=== PATIENT | male | born 1945 | race Caucasian/White ===

== ENCOUNTER → 2017-05-05 | Outpatient (CLI) | payer BC ==
[~2017-05-05] MED LIST: ASCO10003 PO; ASPI325T45 PO; ATOR-22 PO; CALCTAB5 PO; CIPR-255 PO; CLR10 PO; COQ-10 PO; FLAX1CAP11 PO; HYDC25 PO; LPR25 PO; MAGN400T6 PO; MULT-506 PO; POTA10TA PO; TAMS0.4C38 PO
[2017-05-05 10:17] LABS: CHOLESTEROL/HDL RATIO 2.4
== END | disposition home or self-care (01) ==
LOC: C.LAB1850 08:39
PROVIDERS: ATTEND Internal Medicine Cardiovascular Disease
DX: E78.00 Pure hypercholesterolemia, unspecified (principal); I10 Essential (primary) hypertension

== ENCOUNTER → 2017-12-02 | Outpatient (CLI) | payer BC ==
[2017-12-02 17:38] LABS: BASO % 0.4 %; BASO ABS # 0.03 K/uL (0-0.2); EOS % 5.7 %; EOS ABS # 0.43 K/uL (0-0.5); HEMATOCRIT 42.6 % (42-52); HEMOGLOBIN 15.2 g/dL (14.0-18.0); IG# 0.01 K/uL (0.00-0.02); LYMPH % 32.4 %; LYMPH ABS # 2.45 K/uL (1.2-3.4); MEAN CELL VOLUME 88.2 fL (80-100); MEAN CORPUSCULAR HEMOGLOBIN 31.5 pg (25-34); MEAN CORPUSCULAR HGB CONC 35.7 g/dl (32-36); MEAN PLATELET VOLUME 11.2 fL (7.4-10.4); MONO % 11.1 %; MONO ABS # 0.84 K/uL (0.11-0.59); NEUT % 50.3 %; NEUT ABS # 3.81 K/uL (1.4-6.5); PLATELET COUNT 231 K/uL (130-400); RED CELL DISTRIBUTION WIDTH CV 13.6 % (11.5-14.5); RED CELL DISTRIBUTION WIDTH SD 44.3 fL (36.4-46.3); WHITE BLOOD COUNT 7.57 K/uL (4.8-10.8)
[2017-12-02 18:26] LABS: ALBUMIN 3.8 gm/dl (3.4-5.0); ALT/SGPT 36 U/L (12-78); BLOOD UREA NITROGEN 24 mg/dl (7-18); CALCIUM 9.3 mg/dl (8.5-10.1); CARBON DIOXIDE 31 mmol/L (21-32); CHOLESTEROL 121 mg/dl (0-200); GLUCOSE 91 mg/dl (70-99); POTASSIUM 3.7 mmol/L (3.5-5.1); SODIUM 137 mmol/L (136-145)
[2017-12-02 18:36] LABS: ALKALINE PHOSPHATASE 71 U/L (45-117); AST/SGOT 23 U/L (15-37); LDL CHOLESTEROL CALCULATED 43 mg/dl; TOTAL PROTEIN 7.1 gm/dl (6.4-8.2)
[2017-12-03 07:06] LABS: HEMOGLOBIN A1C 5.6 % (4.5-5.6)
== END | disposition home or self-care (01) ==
LOC: C.LABBFT 13:49
PROVIDERS: ATTEND Internal Medicine
DX: Z12.5 Encounter for screening for malignant neoplasm of prostate (principal); E78.00 Pure hypercholesterolemia, unspecified; R73.01 Impaired fasting glucose; I10 Essential (primary) hypertension

== ENCOUNTER → 2018-05-02 | Outpatient (CLI) | payer BC ==
[~2018-05-02] MED LIST changes: +ASPECOTC PO; -ASPI325T45 PO
== END | disposition home or self-care (01) ==
LOC: C.LAB 10:32
PROVIDERS: ATTEND Internal Medicine Cardiovascular Disease
DX: Z00.00 Encounter for general adult medical examination without abnormal findings (principal); E78.00 Pure hypercholesterolemia, unspecified

== ENCOUNTER 2022-01-26 14:27 | Observation (INO) ==
[2022-01-26 15:12] LABS: Basophils # (auto) 0.03 K/uL (0-0.2); Basophils % (auto) 0.3 %; Eosinophils # (auto) 0.27 K/uL (0-0.5); Eosinophils % (auto) 2.3 %; Hematocrit (blood only) 44.7 % (42-52); Hemoglobin 15.9 g/dL (14.0-18.0); Immature Granulocytes # (auto) 0.02 K/uL (0.00-0.02); Immature Granulocytes % (auto) 0.2 %; Lymphocytes # (auto) 2.15 K/uL (1.2-3.4); Lymphocytes % (auto) 18.5 %; Mean Corpuscular Hemoglobin 31.7 pg (25-34); Mean Corpuscular Hgb Conc 35.6 g/dL (32-36); Mean Platelet Volume 11.4 fL (7.4-10.4); Monocytes # (auto) 1.04 K/uL (0.11-0.59); Neutrophils % (auto) 69.7 %; Platelet Count 314 K/uL (130-400); RDW Coefficient of Variation 13.7 % (11.5-14.5); RDW Standard Deviation 44.7 fL (36.4-46.3); Red Blood Count 5.02 M/uL (4.7-6.1); White Blood Count 11.61 K/uL (4.8-10.8)
[2022-01-26 15:15] LABS: Partial Thromboplastin Time 28.1 Seconds (21.0-31.0); Prothrombin Time 10.7 Seconds (9.0-12.0)
[2022-01-26 15:41] LABS: Albumin Globulin Ratio 1.7 (0.9-2); Albumin Level 4.3 gm/dl (3.4-5.0); BUN Creatinine Ratio 13.6 (10-20); Bilirubin,Total 0.5 mg/dl (0.2-1.0); Creatinine Clr Calc Pharmacy 46.3 ml/min; Est GFR (African American) 56.6 ml/min; Est GFR (Non-African American) 48.8 ml/min; Globulin 2.6 gm/dl (2.5-4.0); Magnesium 1.8 mg/dl (1.7-2.4); Potassium 4.2 mmol/L (3.5-5.1); Total Protein 6.9 gm/dl (6.0-8.3)
--- NOTE | 2022-01-26 16:39 | Emergency Department Note ---
Impression & Plan Chest pain ADMIT ED Provider Note HPI: The patient is a 76-year-old male with history of TIA, hypertension, hyperlipidemia, presents emergency department today with complaint of shortness of breath. Patient states that he went to play golf this morning as he usually does, states that he became short of breath as he was walking through the golf course. Patient states that by the time he finished the nine-hole he was very short of breath and also had some chest "pressure". He denies any pain. Patient states this sensation of chest pressure began about 4 hours prior to my initial evaluation here in the ED. Patient states that he also has had some sensation of mild dizziness although he has had this multiple times previously associated with vertigo. On arrival here to the ED the patient states he still does have some mild pressure, he is hemodynamically stable on my initial assessment, he is resting comfortably in bed and otherwise in no acute distress. ROS: -Cardio: Nonspecific chest pressure -Pulmonary: Dyspnea *10 point review systems was conducted and is otherwise negative unless stated above *Outpatient medications and allergy history reviewed PE: General: Alert, NAD HEENT: Normocephalic, atraumatic Eyes: Extraocular eye movement is intact, no scleral erythema Pulmonary: Clear to auscultation bilaterally, no wheezing Cardio: Regular rate and rhythm GI: Abdomen is soft, nontender : No suprapubic tenderness MSK: No evidence of trauma or malformation of the extremities, no edema Skin: No evidence of rash Neuro: Alert, no focal deficits Psychiatric: Cooperative laboratory monitor: - An order was placed for continuous cardiac monitoring - Patient was noted to be in sinus rhythm with rate of 85 EKG: Rate: 104 Rhythm: Accelerated junctional rhythm with retrograde conduction Intervals: QRS 60 ms, QTC [address] changes: No ST elevation Time: 1448 EKG #2: Rate: 73 Rhythm: Sinus rhythm with first-degree AV block Intervals: HI interval prolonged at 400 ms, QRS within normal limits, QTC within normal limits ST changes: No ST elevation Time: 1643 Medical Decision Making: Patient presented to the emergency department with some symptoms of exertional dyspnea today, also complained of nonspecific chest pressure, arrival here to the ED he appears well, initial EKG shows an abnormal rhythm with possible retrograde conduction, inverted P waves noted in lead V1 otherwise no identifiable P waves are noted. Repeat EKG shows sinus rhythm with a severe first-degree AV block measuring a HI interval of 400 ms. Shortly after arrival here to the ED the patient was placed on media monitor, IV was established, lab work obtained. Lab work shows an initial negative high-sensitivity troponin of 15, EKG shows accelerated junctional rhythm without ischemic changes. Repeat EKG shows sinus rhythm with a first-degree AV block without ischemic changes. Chest x-ray does not show any evidence of any acute pathology. Lab work does not show any evidence of any critical electrolyte abnormalities. Delta high-sensitivity troponin returned elevated greater than 25, given the patient's ongoing chest pressure with EKG changes decision was made for admission to which the patient and his at the bedside are in agreement. Case was discussed with the patient's extension course coordinator, Dr. Issa, who is aware of the patient's EKG findings, suggest that this likely is an AV nicole reentry finding on the initial EKG, we will plan for cardiology consultation during admission and patient was admitted to the hospitalist service of [facility] following my discussion with Dr. Pascual. Patient is in agreement to the above plan he was admitted in stable condition for further care. Diagnosis: 1. Nonspecific chest pressure 2. EKG abnormality 3. Elevated delta troponin (high-sensitivity) Disposition: Admission Parviz Mckeon DO Emergency Medicine Past Med/Surg History Medical History (Updated 01/27/22 @ 00:13 by Parviz Mckeon DO) BPH (benign prostatic hyperplasia) Diverticulosis History of lacunar cerebrovascular accident Hypercholesterolemia Hypertension Right-sided tinnitus Sensorineural hearing loss (SNHL) of right ear with restricted hearing of left ear Transient ischemic attack (TIA) 11/2011--unsure of reason--no deficits, no neurologist--on aspirin 325mg daily Tubular adenoma of colon Surgical History History of colonoscopy Status post trigger finger release x3 Family History Father Hearing loss Mother Hearing loss Hypertension Brother Leukemia Other No family history of adverse response to anesthesia No family history of bleeding disorder Denies family history of Ovarian cancer Prostate cancer Diabetes Myocardial infarction Breast cancer Colorectal cancer Social History Smoking Status: Former smoker Tobacco Type: Cigarettes Age Started Using Tobacco: 19; Age Quit Using Tobacco: 36; packs per day: 1; Years Smoked: 17; Second Hand Exposure: No; Do You Dip or Chew Tobacco: No; Tobacco Cessation Education Requested by Patient: No Hx Alcohol Use: No Hx Substance Use: No Preferred Language: Pashto Communication Ability: Effective Counseling Department Chair Required: No Beliefs That Will Affect Care: None marital status: Current Living Situation: Spouse current occupational status: retired Other Information That Helps Us Care for You: No Feels Safe at Home: Yes Safety Concerns: Feels Safe At This Time Dental Care, Regularly: Yes Physical Activity Frequency: Daily Seatbelt Use: always Sunscreen Use: Yes Assistive Devices: Glasses Allergies Allergies Allergy/AdvReac Type Severity Reaction Status Date / Time NSAIDS (Non-Steroidal Allergy Unknown STROKE Verified 01/05/22 14:01 Anti-Inflamma AFTER MED?UNSURE IF CAUSED codeine AdvReac Mild ABDOMINAL Verified 01/05/22 14:01 PAIN Home Meds Home Medications Medication Instructions Recorded Confirmed ascorbic acid (vitamin C) 1,000 mg 1 gm PO QAM tab 06/06/19 01/26/22 tablet aspirin 325 mg tablet 325 mg PO QAM tab 06/06/19 01/26/22 coenzyme Q10 100 mg capsule 100 mg PO QAM cap 06/06/19 01/26/22 multivitamin (Daily Multi-Vitamin) 1 tab PO QAM 06/06/19 01/26/22 calcium carbonate 600 mg-vitamin 1 cap PO QAM cap 06/04/21 01/26/22 D3 12.5 mcg (500 unit) capsule (Calcium 600 with Vitamin D3) hydrochlorothiazide 25 mg tablet 25 mg PO QAM 06/04/21 01/26/22 inulin [Fiber Gummies] 1 tab PO DAILY 06/09/21 01/26/22 omega-3 fatty acids-fish oil 360 1 cap PO DAILY 06/09/21 01/26/22 mg-1,200 mg capsule (Fish Oil) super beta prostate 1 tab PO QPM 06/09/21 01/26/22 loratadine 10 mg tablet (Claritin) 10 mg PO DAILY 01/26/22 01/26/22 magnesium 250 mg tablet 250 mg PO DAILY 01/26/22 01/26/22 peg 400-propylene glycol (PF) 0.4 1 drp OPHTHALMIC (EYE) BID 01/26/22 01/26/22 %-0.3 % eye drops in a dropperette (Systane (PF)) Previous Rx's Medication Instructions Recorded metoprolol tartrate 25 mg tablet 25 mg PO BID #180 tab 02/11/21 atorvastatin 20 mg tablet 20 mg PO HS #90 tab 03/10/21 potassium chloride 10 mEq 10 meq PO QAM #90 tab 12/10/21 tablet,extended release(part/cryst) tamsulosin 0.4 mg capsule 0.4 mg PO QPM #90 cap 12/10/21 Results & Data (ED) Vital Signs Vital Signs - 24 hr 01/26/22 14:27 01/26/22 14:36 01/26/22 16:48 Temperature 36.7 C Temperature Source Oral Pulse Rate 111 H 72 Respiratory Rate 18 21 Blood Pressure 117/79 Blood Pressure Mean 91 Pulse Oximetry 96 93 98 Oxygen Delivery Method Room Air Room Air Room Air Sepsis Recent Fever Within 48 Hours No Sepsis New/Unexplained Change in Mental Status N/A Sepsis Action Taken by Nursing No Action Required 01/26/22 17:00 01/26/22 17:15 01/26/22 17:30 Temperature Temperature Source Pulse Rate 70 71 67 Respiratory Rate 20 20 21 Blood Pressure 128/91 130/92 Blood Pressure Mean 103 104 Pulse Oximetry 97 100 99 Oxygen Delivery Method Room Air Room Air Room Air Sepsis Recent Fever Within 48 Hours Sepsis New/Unexplained Change in Mental Status Sepsis Action Taken by Nursing 01/26/22 17:45 01/26/22 18:00 01/26/22 18:15 Temperature Temperature Source Pulse Rate 65 70 70 Respiratory Rate 22 14 28 H Blood Pressure 132/94 Blood Pressure Mean 106 Pulse Oximetry 98 98 98 Oxygen Delivery Method Room Air Room Air Room Air Sepsis Recent Fever Within 48 Hours Sepsis New/Unexplained Change in Mental Status Sepsis Action Taken by Nursing 01/26/22 18:30 01/26/22 18:45 01/26/22 19:00 Temperature Temperature Source Pulse Rate 68 70 70 Respiratory Rate 14 19 20 Blood Pressure 102/60 118/72 Blood Pressure Mean 74 87 Pulse Oximetry 99 99 97 Oxygen Delivery Method Room Air Room Air Sepsis Recent Fever Within 48 Hours Sepsis New/Unexplained Change in Mental Status Sepsis Action Taken by Nursing 01/26/22 19:10 Temperature Temperature Source Pulse Rate 68 Respiratory Rate 21 Blood Pressure Blood Pressure Mean Pulse Oximetry 97 Oxygen Delivery Method Room Air Sepsis Recent Fever Within 48 Hours Sepsis New/Unexplained Change in Mental Status Sepsis Action Taken by Nursing Laboratory Data Result diagrams: 01/26/22 14:52 01/26/22 14:52 Lab Results 01/26/22 01/26/22 01/26/22 Range/Units 14:52 14:52 14:52 WBC 11.61 H (4.8-10.8) K/uL RBC 5.02 (4.7-6.1) M/uL Hgb 15.9 (14.0-18.0) g/dL Hct 44.7 (42-52) % MCV 89.0 (80-100) fL MCH 31.7 (25-34) pg MCHC 35.6 (32-36) g/dL RDW Std Deviation 44.7 (36.4-46.3) fL RDW Coeff of Cherie 13.7 (11.5-14.5) % Plt Count 314 (130-400) K/uL MPV 11.4 H (7.4-10.4) fL Immature Gran % (Auto) 0.2 % Neut % (Auto) 69.7 % Lymph % (Auto) 18.5 % [place] % (Auto) 9.0 % Eos % (Auto) 2.3 % Baso % (Auto) 0.3 % Neut # (Auto) 8.10 H (1.4-6.5) K/uL Lymph # (Auto) 2.15 (1.2-3.4) K/uL [place] # (Auto) 1.04 H (0.11-0.59) K/uL Eos # (Auto) 0.27 (0-0.5) K/uL Baso # (Auto) 0.03 (0-0.2) K/uL Immature Gran # (Auto) 0.02 (0.00-0.02) K/uL PT 10.7 (9.0-12.0) Seconds INR 1.0 (0.9-1.1) APTT 28.1 (21.0-31.0) Seconds PTT Ratio 1.0 VBG pH (7.36-7.41) VBG pCO2 (38-50) mmHg VBG pO2 mmHg VBG HCO3 mmol/L VBG O2 Saturation % VBG Base Excess mEq/L Barometric Pressure mm/Hg Sodium (136-145) mmol/L Potassium (3.5-5.1) mmol/L Chloride (98-107) mmol/L Carbon Dioxide (21-32) mmol/L Anion Gap (3-11) BUN (6-23) mg/dl Creatinine (0.6-1.4) mg/dl Est Cr Clr Drug Dosing ml/min Est GFR ( Amer) ml/min Est GFR (Non-Af Amer) ml/min BUN/Creatinine Ratio (10-20) Glucose (70-99(Fasting)) mg/dl Calcium (8.5-10.1) mg/dl Magnesium (1.7-2.4) mg/dl Total Bilirubin (0.2-1.0) mg/dl AST (13-39) U/L ALT (7-52) U/L Alkaline Phosphatase (34-104) U/L Troponin I High Sens 15.1 (0-20) pg/ml B-Natriuretic Peptide (0-100) pg/ml Total Protein (6.0-8.3) gm/dl Albumin (3.4-5.0) gm/dl Globulin (2.5-4.0) gm/dl Albumin/Globulin Ratio (0.9-2) SARS-CoV-2, RNA, NAAT (NEGATIVE) 01/26/22 01/26/22 01/26/22 Range/Units 14:52 16:52 16:52 WBC (4.8-10.8) K/uL RBC (4.7-6.1) M/uL Hgb (14.0-18.0) g/dL Hct (42-52) % MCV (80-100) fL MCH (25-34) pg MCHC (32-36) g/dL RDW Std Deviation (36.4-46.3) fL RDW Coeff of Cherie (11.5-14.5) % Plt Count (130-400) K/uL MPV (7.4-10.4) fL Immature Gran % (Auto) % Neut % (Auto) % Lymph % (Auto) % [place] % (Auto) % Eos % (Auto) % Baso % (Auto) % Neut # (Auto) (1.4-6.5) K/uL Lymph # (Auto) (1.2-3.4) K/uL [place] # (Auto) (0.11-0.59) K/uL Eos # (Auto) (0-0.5) K/uL Baso # (Auto) (0-0.2) K/uL Immature Gran # (Auto) (0.00-0.02) K/uL PT (9.0-12.0) Seconds INR (0.9-1.1) APTT (21.0-31.0) Seconds PTT Ratio VBG pH (7.36-7.41) VBG pCO2 (38-50) mmHg VBG pO2 mmHg VBG HCO3 mmol/L VBG O2 Saturation % VBG Base Excess mEq/L Barometric Pressure mm/Hg Sodium 139 (136-145) mmol/L Potassium 4.2 (3.5-5.1) mmol/L Chloride 103 (98-107) mmol/L Carbon Dioxide 27 (21-32) mmol/L Anion Gap 9 (3-11) BUN 19 (6-23) mg/dl Creatinine 1.40 (0.6-1.4) mg/dl Est Cr Clr Drug Dosing 46.3 ml/min Est GFR ( Amer) 56.6 ml/min Est GFR (Non-Af Amer) 48.8 ml/min BUN/Creatinine Ratio 13.6 (10-20) Glucose 88 (70-99(Fasting)) mg/dl Calcium 10.0 (8.5-10.1) mg/dl Magnesium 1.8 (1.7-2.4) mg/dl Total Bilirubin 0.5 (0.2-1.0) mg/dl AST 20 (13-39) U/L ALT 22 (7-52) U/L Alkaline Phosphatase 82 (34-104) U/L Troponin I High Sens 25.2 H D (0-20) pg/ml B-Natriuretic Peptide 91 (0-100) pg/ml Total Protein 6.9 (6.0-8.3) gm/dl Albumin 4.3 (3.4-5.0) gm/dl Globulin 2.6 (2.5-4.0) gm/dl Albumin/Globulin Ratio 1.7 (0.9-2) SARS-CoV-2, RNA, NAAT (NEGATIVE) 01/26/22 01/26/22 Range/Units 16:52 19:03 WBC (4.8-10.8) K/uL RBC (4.7-6.1) M/uL Hgb (14.0-18.0) g/dL Hct (42-52) % MCV (80-100) fL MCH (25-34) pg MCHC (32-36) g/dL RDW Std Deviation (36.4-46.3) fL RDW Coeff of Cherie (11.5-14.5) % Plt Count (130-400) K/uL MPV (7.4-10.4) fL Immature Gran % (Auto) % Neut % (Auto) % Lymph % (Auto) % [place] % (Auto) % Eos % (Auto) % Baso % (Auto) % Neut # (Auto) (1.4-6.5) K/uL Lymph # (Auto) (1.2-3.4) K/uL [place] # (Auto) (0.11-0.59) K/uL Eos # (Auto) (0-0.5) K/uL Baso # (Auto) (0-0.2) K/uL Immature Gran # (Auto) (0.00-0.02) K/uL PT (9.0-12.0) Seconds INR (0.9-1.1) APTT (21.0-31.0) Seconds PTT Ratio VBG pH 7.41 (7.36-7.41) VBG pCO2 47 (38-50) mmHg VBG pO2 22 mmHg VBG HCO3 29 mmol/L VBG O2 Saturation < 60.0 % VBG Base Excess 3.8 mEq/L Barometric Pressure 732.2 mm/Hg Sodium (136-145) mmol/L Potassium (3.5-5.1) mmol/L Chloride (98-107) mmol/L Carbon Dioxide (21-32) mmol/L Anion Gap (3-11) BUN (6-23) mg/dl Creatinine (0.6-1.4) mg/dl Est Cr Clr Drug Dosing ml/min Est GFR ( Amer) ml/min Est GFR (Non-Af Amer) ml/min BUN/Creatinine Ratio (10-20) Glucose (70-99(Fasting)) mg/dl Calcium (8.5-10.1) mg/dl Magnesium (1.7-2.4) mg/dl Total Bilirubin (0.2-1.0) mg/dl AST (13-39) U/L ALT (7-52) U/L Alkaline Phosphatase (34-104) U/L Troponin I High Sens (0-20) pg/ml B-Natriuretic Peptide (0-100) pg/ml Total Protein (6.0-8.3) gm/dl Albumin (3.4-5.0) gm/dl Globulin (2.5-4.0) gm/dl Albumin/Globulin Ratio (0.9-2) SARS-CoV-2, RNA, NAAT NEGATIVE (NEGATIVE) Administered Medications Atorvastatin Calcium (Atorvastatin 20 Mg Tab) 20 mg PO HS ORTIZ Stop: 02/25/22 22:06 Last Admin: 01/26/22 23:44 Dose: 20 mg Documented by: [id number] Metoprolol Tartrate (Metoprolol Tartrate 25 Mg Tab) 25 mg PO BID ORTIZ Stop: 02/25/22 22:06 Last Admin: 01/26/22 23:45 Dose: 25 mg Documented by: [id number] Tamsulosin HCl (Tamsulosin Hcl 0.4 Mg Cap) 0.4 mg PO QPM ORTIZ Stop: 02/25/22 22:06 Last Admin: 01/26/22 23:45 Dose: 0.4 mg Documented by: [id number] Imaging Data Radiologist's Impression: Chest X-Ray 01/26/22 14:41 XR chest 1V portable CLINICAL HISTORY: Shortness of breath. COMPARISON STUDY: Chest radiograph December 28, 2011. FINDINGS: Lung volumes are normal. Lungs are clear. There is no pneumothorax or pleural effusion. Cardiac size is normal. Mediastinal contours are normal. There is no evidence for pulmonary edema. IMPRESSION: No acute cardiopulmonary findings. ACT 112: Negative or not required by law. Electronically signed by: Escobar Bower M.D. 01/26/2022 4:51 PM Discharge Plan Visit Data Chief Complaint: Shortness of Breath/Dyspnea Stated Complaint: SHORTNESS OF BREATH; PAIN IN LEFT LEG ED Provider: Parviz Mckeon Discharge Problem: Chest pain Patient Disposition: Admitted As Inpatient Discharge Instructions Interventions: ED Discharge Assessment Last Done: 01/26/22 21:37 Discharge Problem: Chest pain Qualifiers: Chest pain type: unspecified Qualified Code(s): R07.9 - Chest pain, unspecified
--- NOTE | 2022-01-26 16:54 | XRay Report ---
XR chest 1V portable CLINICAL HISTORY: Shortness of breath. COMPARISON STUDY: Chest radiograph December 28, 2011. FINDINGS: Lung volumes are normal. Lungs are clear. There is no pneumothorax or pleural effusion. Car diac size is normal. Mediastinal contours are normal. There is no evidence for pulmonary edema. IMPRESSION: No acute cardiopulmonary findings. ACT 112: Negative or not required by law. Electronically signed by: Escobar Bower M.D. 01/26/2022 4:51 PM
[2022-01-26 17:16] LABS: Base Excess VBG 3.8 mEq/L; HCO3 VBG 29 mmol/L; Oxygen Saturation VBG < 60.0 %; PCO2 VBG 47 mmHg (38-50); PO2 VBG 22 mmHg; pH VBG 7.41 (7.36-7.41)
--- NOTE | 2022-01-26 20:31 | History & Physical Report ---
Date of Service January 26, 2022 Assessment & Plan (1) Chest pressure: Plan: 76yo male with history of HTN, HLP presenting with substernal chest pressure that occurred today (01/26/22) while golfing. Pain has now resolved. No additional complaints. Initial EKG with junctional rhythm, repeat with SR with 1st degree AV block. HS-tropnonin 15.1 --> 25.2 at 2 hours. Risk factors include age, gender, history of HTN/HLP -Observation to medical with telemetry -Continue to trend HS-troponin q 6 hours -Check 2D echo -EKG as needed with chest pain -Nitro SL as needed for chest pain -Cardiology consultation appreciated -Continue ASA 325mg daily -Continue Atorvastatin - may need to increase to high dose prior to discharge (2) Hypertension: Plan: Blood pressure adequately controlled on medication -Continue HCTZ 25mg po qAM -Continue Metoprolol 25mg po BID -Continue to monitor (3) Hypercholesterolemia: Plan: Chronic. Well controlled on Atorvastatin. Last lipid panel 12/08/21 - Total Cholesterol = 116, LDL=54, HDL=46, TG=82 -Continue Atorvastatin 20mg po qHS (4) Transient ischemic attack (TIA): Plan: Patient with remote history of prior CVA, TIA in 2011. No neurological deficits. -Continue ASA, Atorvastatin (5) BPH (benign prostatic hyperplasia): Plan: Presently without symptoms -Continue Tamsulosin 0.4mg po daily Plan: F/E/N - Heplock. Monitor electrolytes and replete as needed. Heart Healthy diet. NPO after midnight. Ppx - low risk for DVT Code - Full per discussion with patient Dispo - Observation to medical with telemetry History of Present Illness Chief Complaint: chest pressure Primary Care Provider: Rod Bowling MD Gordo Nolan is a 76yo male with history of HTN, HLP prior lacunar CVA (November 2011, no residual deficits) presenting with chest discomfort. Patient is active and independent. He is able to walk 18 holes of golf without exertional symptoms. Patient was golfing today - started playing at 11:00 and immediately felt short of breath. He walked some but also rode in a friend's golf cart which is unusual for him. When he got to the 8th hole he began feeling dizzy and at the 9th hole he felt dizzy as well as substernal chest discomfort. Chest discomfort felt like pressure, non-radiating, no diaphoresis or nausea. Relieved with rest. He has not had a recurrence of the discomfort today. Presently chest pain free. He also reports some mild cramping in his left hamstring that he noticed today as well. Patient was wearing his FitBit during the day. His heart rate was >100 for most of the time golfing, maximum of 116 bpm. For comparison, he golfed last weekend with maximum heart rate of 122 and did not experience any symptoms. No history of DVT. No known history of CAD, CHF or arrhythmia. No prior cardiac catheterizations. Patient had an exercise stress echo performed on 12/25/2011 which was normal with no evidence of inducible ischemia. He was seen by Cardiology in December 2011 after presenting with left sided numbness. He had minimally elevated troponin at that time. Allergies Allergy/AdvReac Type Severity Reaction Status Date / Time NSAIDS (Non-Steroidal Allergy Unknown STROKE Verified 01/05/22 14:01 Anti-Inflamma AFTER MED?UNSURE IF CAUSED codeine AdvReac Mild ABDOMINAL Verified 01/05/22 14:01 PAIN Home Medications Medication Instructions Recorded Confirmed Type ascorbic acid (vitamin C) 1,000 mg 1 gm PO QAM tab 06/06/19 01/26/22 History tablet aspirin 325 mg tablet 325 mg PO QAM tab 06/06/19 01/26/22 History coenzyme Q10 100 mg capsule 100 mg PO QAM cap 06/06/19 01/26/22 History multivitamin (Daily Multi-Vitamin) 1 tab PO QAM 06/06/19 01/26/22 History metoprolol tartrate 25 mg tablet 25 mg PO BID #180 tab 02/11/21 01/26/22 Rx atorvastatin 20 mg tablet 20 mg PO HS #90 tab 03/10/21 01/26/22 Rx calcium carbonate 600 mg-vitamin 1 cap PO QAM cap 06/04/21 01/26/22 History D3 12.5 mcg (500 unit) capsule (Calcium 600 with Vitamin D3) hydrochlorothiazide 25 mg tablet 25 mg PO QAM 06/04/21 01/26/22 History inulin [Fiber Gummies] 1 tab PO DAILY 06/09/21 01/26/22 History omega-3 fatty acids-fish oil 360 1 cap PO DAILY 06/09/21 01/26/22 History mg-1,200 mg capsule (Fish Oil) super beta prostate 1 tab PO QPM 06/09/21 01/26/22 History potassium chloride 10 mEq 10 meq PO QAM #90 tab 12/10/21 01/26/22 Rx tablet,extended release(part/cryst) tamsulosin 0.4 mg capsule 0.4 mg PO QPM #90 cap 12/10/21 01/26/22 Rx loratadine 10 mg tablet (Claritin) 10 mg PO DAILY 01/26/22 01/26/22 History magnesium 250 mg tablet 250 mg PO DAILY 01/26/22 01/26/22 History peg 400-propylene glycol (PF) 0.4 1 drp OPHTHALMIC (EYE) BID 01/26/22 01/26/22 History %-0.3 % eye drops in a dropperette (Systane (PF)) Past Med/Surg History Medical History (Updated 01/26/22 @ 22:07 by Gloria Pascual DO) BPH (benign prostatic hyperplasia) Diverticulosis History of lacunar cerebrovascular accident Hypercholesterolemia Hypertension Right-sided tinnitus Sensorineural hearing loss (SNHL) of right ear with restricted hearing of left ear Transient ischemic attack (TIA) 11/2011--unsure of reason--no deficits, no neurologist--on aspirin 325mg daily Tubular adenoma of colon Surgical History History of colonoscopy Status post trigger finger release x3 Family History Father Hearing loss Mother Hearing loss Hypertension Brother Leukemia Other No family history of adverse response to anesthesia No family history of bleeding disorder Denies family history of Ovarian cancer Prostate cancer Diabetes Myocardial infarction Breast cancer Colorectal cancer Social History Smoking Status: Former smoker Tobacco Type: Cigarettes Age Started Using Tobacco: 19; Age Quit Using Tobacco: 36; packs per day: 1; Years Smoked: 17; Second Hand Exposure: No; Do You Dip or Chew Tobacco: No; Tobacco Cessation Education Requested by Patient: No Hx Alcohol Use: No Hx Substance Use: No Preferred Language: Jordanian Communication Ability: Effective Bariatric Surgeon Required: No Beliefs That Will Affect Care: None marital status: Current Living Situation: Spouse current occupational status: retired Other Information That Helps Us Care for You: No Feels Safe at Home: Yes Safety Concerns: Feels Safe At This Time Dental Care, Regularly: Yes Physical Activity Frequency: Daily Seatbelt Use: always Sunscreen Use: Yes Assistive Devices: Glasses Review of Systems Review of Systems: All systems reviewed & are unremarkable except as noted in HPI & below Physical Exam Physical Exam: General: patient resting comfortably, NAD, non-toxic in appearance, AA&O x 4 Skin: warm, dry, intact, no rashes or lesions HEENT: NC/AT, PERRL, EOMI, anicteric sclera, conjunctiva without injection, external ear normal to inspection and nontender, nares patent, moist mucus membranes, dentition intact, no oropharyngeal lesions, neck supple, trachea midline, no LAD, no thyromegaly, no JVD Heart: +S1/S2, regular, no m/r/g, no reproducible chest wall pain Lungs: equal air entry bilaterally, no rales/rhonchi/wheezes Abd: +BS, soft, NT/ND, no masses/organomegaly/ascites Ext: warm, 2+ pulses in UE/LE bilaterally, no clubbing/cyanosis or edema Neuro: nonfocal, patient AA&O x 4, speech intact, no facial droop, moving all extremities on command with equal strength 5/5 Results & Data Results & Data ([facility]) Vital Signs (Past 12 Hours) Vital Signs Temp Pulse Resp BP Pulse Ox 01/26/22 19:10 68 21 97 01/26/22 19:00 70 20 118/72 97 01/26/22 18:45 70 19 99 01/26/22 18:30 68 14 102/60 99 01/26/22 18:15 70 28 H 98 01/26/22 18:00 70 14 132/94 98 01/26/22 17:45 65 22 98 01/26/22 17:30 67 21 130/92 99 01/26/22 17:15 71 20 100 01/26/22 17:00 70 20 128/91 97 01/26/22 16:48 72 21 98 01/26/22 14:36 36.7 C 111 H 18 117/79 93 01/26/22 14:27 96 Laboratory Results Laboratory Results WBC 11.61 K/uL (4.8-10.8) H 01/26/22 14:52 RBC 5.02 M/uL (4.7-6.1) 01/26/22 14:52 Hgb 15.9 g/dL (14.0-18.0) 01/26/22 14:52 Hct 44.7 % (42-52) 01/26/22 14:52 MCV 89.0 fL (80-100) 01/26/22 14:52 MCH 31.7 pg (25-34) 01/26/22 14:52 MCHC 35.6 g/dL (32-36) 01/26/22 14:52 RDW Std Deviation 44.7 fL (36.4-46.3) 01/26/22 14:52 RDW Coeff of Cherie 13.7 % (11.5-14.5) 01/26/22 14:52 Plt Count 314 K/uL (130-400) 01/26/22 14:52 MPV 11.4 fL (7.4-10.4) H 01/26/22 14:52 Immature Gran % (Auto) 0.2 % 01/26/22 14:52 Neut % (Auto) 69.7 % 01/26/22 14:52 Lymph % (Auto) 18.5 % 01/26/22 14:52 [place] % (Auto) 9.0 % 01/26/22 14:52 Eos % (Auto) 2.3 % 01/26/22 14:52 Baso % (Auto) 0.3 % 01/26/22 14:52 Neut # (Auto) 8.10 K/uL (1.4-6.5) H 01/26/22 14:52 Lymph # (Auto) 2.15 K/uL (1.2-3.4) 01/26/22 14:52 [place] # (Auto) 1.04 K/uL (0.11-0.59) H 01/26/22 14:52 Eos # (Auto) 0.27 K/uL (0-0.5) 01/26/22 14:52 Baso # (Auto) 0.03 K/uL (0-0.2) 01/26/22 14:52 Immature Gran # (Auto) 0.02 K/uL (0.00-0.02) 01/26/22 14:52 PT 10.7 Seconds (9.0-12.0) 01/26/22 14:52 INR 1.0 (0.9-1.1) 01/26/22 14:52 APTT 28.1 Seconds (21.0-31.0) 01/26/22 14:52 PTT Ratio 1.0 01/26/22 14:52 VBG pH 7.41 (7.36-7.41) 01/26/22 16:52 VBG pCO2 47 mmHg (38-50) 01/26/22 16:52 VBG pO2 22 mmHg 01/26/22 16:52 VBG HCO3 29 mmol/L 01/26/22 16:52 VBG O2 Saturation < 60.0 % 01/26/22 16:52 VBG Base Excess 3.8 mEq/L 01/26/22 16:52 Barometric Pressure 732.2 mm/Hg 01/26/22 16:52 Sodium 139 mmol/L (136-145) 01/26/22 14:52 Potassium 4.2 mmol/L (3.5-5.1) 01/26/22 14:52 Chloride 103 mmol/L (98-107) 01/26/22 14:52 Carbon Dioxide 27 mmol/L (21-32) 01/26/22 14:52 Anion Gap 9 (3-11) 01/26/22 14:52 BUN 19 mg/dl (6-23) 01/26/22 14:52 Creatinine 1.40 mg/dl (0.6-1.4) 01/26/22 14:52 Est Cr Clr Drug Dosing 46.3 ml/min 01/26/22 14:52 Est GFR ( Amer) 56.6 ml/min 01/26/22 14:52 Est GFR (Non-Af Amer) 48.8 ml/min 01/26/22 14:52 BUN/Creatinine Ratio 13.6 (10-20) 01/26/22 14:52 Glucose 88 mg/dl (70-99(Fasting)) 01/26/22 14:52 Calcium 10.0 mg/dl (8.5-10.1) 01/26/22 14:52 Magnesium 1.8 mg/dl (1.7-2.4) 01/26/22 14:52 Total Bilirubin 0.5 mg/dl (0.2-1.0) 01/26/22 14:52 AST 20 U/L (13-39) 01/26/22 14:52 ALT 22 U/L (7-52) 01/26/22 14:52 Alkaline Phosphatase 82 U/L (34-104) 01/26/22 14:52 Troponin I High Sens 25.2 pg/ml (0-20) H D 01/26/22 16:52 B-Natriuretic Peptide 91 pg/ml (0-100) 01/26/22 16:52 Total Protein 6.9 gm/dl (6.0-8.3) 01/26/22 14:52 Albumin 4.3 gm/dl (3.4-5.0) 01/26/22 14:52 Globulin 2.6 gm/dl (2.5-4.0) 01/26/22 14:52 Albumin/Globulin Ratio 1.7 (0.9-2) 01/26/22 14:52 SARS-CoV-2, RNA, NAAT NEGATIVE (NEGATIVE) 01/26/22 19:03 Impressions Chest X-Ray 01/26/22 14:41 XR chest 1V portable CLINICAL HISTORY: Shortness of breath. COMPARISON STUDY: Chest radiograph December 28, 2011. FINDINGS: Lung volumes are normal. Lungs are clear. There is no pneumothorax or pleural effusion. Cardiac size is normal. Mediastinal contours are normal. There is no evidence for pulmonary edema. IMPRESSION: No acute cardiopulmonary findings. ACT 112: Negative or not required by law. Electronically signed by: Escobar Bower M.D. 01/26/2022 4:51 PM ECG Additional Comments: EKG with junctional rhythm at 104, normal axis, QRS=68, MDa=930, no acute ischemic changes EKG with NSR with 1st degree AV block, rate 73, QRS=66, MAq=964, ?inferior infarct age indeterminant Code Status & VTE Plan VTE Prophylaxis Plan VTE Prophylaxis will be ordered: Yes PG Care Time/CCT Total # of Minutes Spent Total Time Spent with Patient: Total time spent is greater than 50% in coordination of care (as documented) at patient's floor/unit and/or counseling patient: Coding Level of Care Code INT OBSERVATION CARE 50M LVL 2 Diagnoses Transient ischemic attack (TIA) G45.9 Hypercholesterolemia E78.00 Hypertension I10 BPH (benign prostatic hyperplasia) N40.0 Chest pressure R07.89
[2022-01-26] MEDS ORDERED: ACETAMINOPHEN 325 MG TAB PO PRN (22:07)
[2022-01-26] MEDS ORDERED: ATORVASTATIN 20 MG TAB PO SCH (22:07)
[2022-01-26] MEDS ORDERED: TAMSULOSIN HCL 0.4 MG CAP PO SCH (22:07)
[2022-01-26] MEDS ORDERED: DOCUSATE SODIUM 100 MG CAP PO PRN (22:07)
[2022-01-26] MEDS ORDERED: NITROGLYCERIN SL 0.4 MG/TAB TAB SL PRN (22:07)
[2022-01-26] MEDS ORDERED: ONDANSETRON INJ 2 MG/ML 2 ML VIAL IV PRN (22:07)
[2022-01-26] MEDS: METOPROLOL TARTRATE 25 MG TAB PO SCH (23:45)
--- NOTE | 2022-01-27 06:33 | Ultrasound Report ---
LEFT LOWER EXTREMITY VENOUS DOPPLER HISTORY: Acute pain and swelling of the left lower leg LLE cramping, SOB, ?DVT COMPARISON STUDY: None. FINDINGS: There is normal compressibility, flow, and augmentation within the left lower extremity anand p venous system. IMPRESSION: No DVT within the left lower extremity. ACT 112: Negative or not required by law. Electronically signed by: Rodolfo Bender M.D. 01/27/2022 6:31 AM
[2022-01-27 07:46] LABS: Basophils # (auto) 0.04 K/uL (0-0.2); Basophils % (auto) 0.4 %; Eosinophils # (auto) 0.57 K/uL (0-0.5); Eosinophils % (auto) 6.1 %; Hematocrit (blood only) 43.7 % (42-52); Immature Granulocytes # (auto) 0.03 K/uL (0.00-0.02); Immature Granulocytes % (auto) 0.3 %; Lymphocytes # (auto) 2.98 K/uL (1.2-3.4); Lymphocytes % (auto) 31.8 %; Mean Corpuscular Hemoglobin 30.9 pg (25-34); Mean Corpuscular Hgb Conc 34.3 g/dL (32-36); Mean Corpuscular Volume 90.1 fL (80-100); Mean Platelet Volume 11.3 fL (7.4-10.4); Monocytes # (auto) 0.77 K/uL (0.11-0.59); Monocytes % (auto) 8.2 %; Neutrophils # (auto) 4.99 K/uL (1.4-6.5); Neutrophils % (auto) 53.2 %; Nucleated RBC # (auto) 0.02 K/uL (0-0); Nucleated RBC % (auto) 0.2 %; Platelet Count 297 K/uL (130-400); RDW Coefficient of Variation 13.7 % (11.5-14.5); RDW Standard Deviation 45.4 fL (36.4-46.3); Red Blood Count 4.85 M/uL (4.7-6.1); White Blood Count 9.38 K/uL (4.8-10.8)
[2022-01-27] MEDS: METOPROLOL TARTRATE 25 MG TAB PO SCH (08:17)
[2022-01-27] MEDS ORDERED: ASPIRIN 325 MG ECTAB PO SCH (09:00)
[2022-01-27] MEDS ORDERED: hydroCHLOROthiazide 25 MG TAB PO SCH (09:00)
[2022-01-27] MEDS ORDERED: LORATADINE 10 MG TAB PO SCH (09:00)
--- NOTE | 2022-01-27 09:04 | XCELERA ---
[id number]
[2022-01-27 09:13] LABS: BUN Creatinine Ratio 15.5 (10-20); Calcium 9.4 mg/dl (8.5-10.1); Creatinine Clr Calc Pharmacy 55.9 ml/min; Est GFR (Non-African American) 61.3 ml/min; Potassium 3.5 mmol/L (3.5-5.1)
[2022-01-27 09:16] LABS: Lyme Ab IgG w/WB Rflx Negative (Negative); Lyme Ab IgM w/WB Rflx Negative (Negative)
--- NOTE | 2022-01-27 09:50 | Hospitalist Progress Note ---
Date of Service January 27, 2022 Assessment & Plan (1) Chest pressure: Plan: 76yo male with history of HTN, HLP presenting with substernal chest pressure that occurred today (01/26/22) while golfing. Pain has now resolved. No additional complaints. Initial EKG with junctional rhythm, repeat with SR with 1st degree AV block. HS-tropnonin 15.1 --> 25.2 at 2 hours. Risk factors include age, gender, history of HTN/HLP Chest Pain -Observation to medical with telemetry - EKG on admit in junction rhythm, repeat with 1* block WA 400ms -Continue to trend HS-troponin peaked at 28 now downtrending - TTE pending -EKG as needed with chest pain -Nitro SL as needed for chest pain -Cardiology consultation appreciated - Recieved ASA 325, continue aspirin daily -Continue Atorvastatin. Last LDL 53. - No hx DM, tobacco use, OK, CAD - Lyme negative (2) Hypertension: Plan: Blood pressure adequately controlled on medication -Continue HCTZ 25mg po qAM -Continue Metoprolol 25mg po BID -Continue to monitor (3) Hypercholesterolemia: Plan: -Chronic. -Well controlled on Atorvastatin. -Last lipid panel 12/08/21 - Total Cholesterol = 116, LDL=54, HDL=46, TG=82 -Continue Atorvastatin 20mg po qHS (4) Transient ischemic attack (TIA): Plan: -Patient with remote history of prior CVA, TIA in 2011. - No neurological deficits. -Continue ASA, Atorvastatin (5) BPH (benign prostatic hyperplasia): Plan: -Presently without symptoms -Continue Tamsulosin 0.4mg po daily (6) First degree atrioventricular block: Plan: - As previously noted - Lyme negative Plan: F/E/N - Heplock. Monitor electrolytes and replete as needed. Heart Healthy diet. NPO pending cardiac eval Ppx - low risk for DVT Code - Full per discussion with patient Dispo - Observation to medical with telemetry Admission and Anticipated Discharge Date Admission Date: January 26, 2022 Subjective Seen at bedside. Pt reports chest pressure but no pain when golfing yesterday. Did have associated shortness of breath and HR 100-120 which was unusual for him. Fatigued more than normal walking on the golf course. Improved somewhat by ER presentation but not resolved, symptoms resolved around time of transfer last night. Feels in normal state of health this morning, no cp/pressure/sob/diaphoresis/fever/chills. Has had a hx of tick exposures with no recent known exposures. No tobacco use, no history of OK/CAD/DM. Stres test 2011 after his stroke was normal. Review of Systems Review of Systems: All systems reviewed & are unremarkable except as noted in Subjective Physical Exam Physical Exam: General: A&Ox3. NAD. Cooperative. HEENT: Atraumatic, normocephalic. Vision/hearing grossly intact. PERLAA. No nystagmus. Pulm: CTAB A&P. -wheezes, -rales, -rhonchi. Symmetrical chest rise. No increased work of breathing. No respiratory distress. Cardiac: RRR, -mrg. Radial pulses intact and symmetrical. Abdominal: Nontender, nondistended, soft. BS present. Results & Data Results & Data ([facility]) Vital Signs (Past 12 Hours) Vital Signs Temp Pulse Pulse Resp BP Pulse Ox 01/27/22 07:45 36.3 C L 84 18 136/82 16 L 01/27/22 07:17 62 01/27/22 04:12 36.5 C 60 18 113/65 97 01/26/22 23:56 81 01/26/22 22:08 36.6 C 72 20 131/72 96 PG Care Time/CCT Total # of Minutes Spent Total Time Spent with Patient: Total time spent is greater than 50% in coordination of care (as documented) at patient's floor/unit and/or counseling patient: Coding Diagnoses Chest pressure R07.89 Hypertension I10 Hypercholesterolemia E78.00 Transient ischemic attack (TIA) G45.9 BPH (benign prostatic hyperplasia) N40.0 First degree atrioventricular block I44.0
--- NOTE | 2022-01-27 10:53 | Cardiology Consultation ---
Date of Consultation January 27, 2022 Assessment & Plan (1) Chest pain: -3 hours of symptoms along with a very mild elevation in high sensitivity troponin. -will proceed with a stress echocardiogram to rule out coronary ischemia. (2) Hypertension: -adequate control on current regimen. (3) Hypercholesterolemia: -continue atorvastatin. (4) Mitral insufficiency: -mild in degree along with mild mitral stenosis. History of Present Illness Attending Physician: Cale Laurent MD History of Present Illness Mr. Nolan is a 76-year-old male admitted yesterday with a chest pain syndrome. This consultation was ordered to assistance cardiac management. Of note, the patient is well known to me from the outpatient setting. The patient was in his usual state of health until playing golf yesterday. He noticed significant exertional dyspnea during 1st 7 holes. At hole 8, the patient noted concurrent dizziness. By the time he reached the 9th hole, he was now experiencing substernal chest pressure. The patient became quite concerned and presented to the emergency room for further care. The patient's chest pressure resolved after arriving at the emergency room. Total duration of his discomfort was approximately 3 hours according to his report. He had no associated symptoms such as nausea, vomiting, diaphoresis, or radiation of the discomfort. We have discussed need for a stress echocardiogram. Currently, patient is resting comfortably in bed without complaints. Past medical and surgical history 1. Hypertension 2. Hypercholesterolemia 3. Lacunar CVA-November 2011 4. Diverticulosis 5. Hearing deficit 6. BPH 7. Colonic polyps Social history and lives with his No tobacco alcohol Family history No early coronary artery disease Review of systems A 10 review systems was undertaken and negative except for that described above. Allergies Allergy/AdvReac Type Severity Reaction Status Date / Time NSAIDS (Non-Steroidal Allergy Unknown STROKE Verified 01/05/22 14:01 Anti-Inflamma AFTER MED?UNSURE IF CAUSED codeine AdvReac Mild ABDOMINAL Verified 01/05/22 14:01 PAIN Home Medications Medication Instructions Recorded Confirmed Type ascorbic acid (vitamin C) 1,000 mg 1 gm PO QAM tab 06/06/19 01/26/22 History tablet aspirin 325 mg tablet 325 mg PO QAM tab 06/06/19 01/26/22 History coenzyme Q10 100 mg capsule 100 mg PO QAM cap 06/06/19 01/26/22 History multivitamin (Daily Multi-Vitamin) 1 tab PO QAM 06/06/19 01/26/22 History metoprolol tartrate 25 mg tablet 25 mg PO BID #180 tab 02/11/21 01/26/22 Rx atorvastatin 20 mg tablet 20 mg PO HS #90 tab 03/10/21 01/26/22 Rx calcium carbonate 600 mg-vitamin 1 cap PO QAM cap 06/04/21 01/26/22 History D3 12.5 mcg (500 unit) capsule (Calcium 600 with Vitamin D3) hydrochlorothiazide 25 mg tablet 25 mg PO QAM 06/04/21 01/26/22 History inulin [Fiber Gummies] 1 tab PO DAILY 06/09/21 01/26/22 History omega-3 fatty acids-fish oil 360 1 cap PO DAILY 06/09/21 01/26/22 History mg-1,200 mg capsule (Fish Oil) super beta prostate 1 tab PO QPM 06/09/21 01/26/22 History potassium chloride 10 mEq 10 meq PO QAM #90 tab 12/10/21 01/26/22 Rx tablet,extended release(part/cryst) tamsulosin 0.4 mg capsule 0.4 mg PO QPM #90 cap 12/10/21 01/26/22 Rx loratadine 10 mg tablet (Claritin) 10 mg PO DAILY 01/26/22 01/26/22 History magnesium 250 mg tablet 250 mg PO DAILY 01/26/22 01/26/22 History peg 400-propylene glycol (PF) 0.4 1 drp OPHTHALMIC (EYE) BID 01/26/22 01/26/22 History %-0.3 % eye drops in a dropperette (Systane (PF)) Patient History Medical History (Updated 01/27/22 @ 09:49 by Cale Laurent MD) BPH (benign prostatic hyperplasia) Diverticulosis History of lacunar cerebrovascular accident Hypercholesterolemia Hypertension Right-sided tinnitus Sensorineural hearing loss (SNHL) of right ear with restricted hearing of left ear Transient ischemic attack (TIA) 11/2011--unsure of reason--no deficits, no neurologist--on aspirin 325mg daily Tubular adenoma of colon Surgical History History of colonoscopy Status post trigger finger release x3 Family History Father Hearing loss Mother Hearing loss Hypertension Brother Leukemia Other No family history of adverse response to anesthesia No family history of bleeding disorder Denies family history of Ovarian cancer Prostate cancer Diabetes Myocardial infarction Breast cancer Colorectal cancer Social History Smoking Status: Former smoker Tobacco Type: Cigarettes Age Started Using Tobacco: 19; Age Quit Using Tobacco: 36; packs per day: 1; Years Smoked: 17; Second Hand Exposure: No; Do You Dip or Chew Tobacco: No; Tobacco Cessation Education Requested by Patient: No Hx Alcohol Use: No Hx Substance Use: No Preferred Language: Estonian Communication Ability: Effective Wharf Tender Required: No Beliefs That Will Affect Care: None marital status: Current Living Situation: Spouse current occupational status: retired Other Information That Helps Us Care for You: No Feels Safe at Home: Yes Safety Concerns: Feels Safe At This Time Dental Care, Regularly: Yes Physical Activity Frequency: Daily Seatbelt Use: always Sunscreen Use: Yes Assistive Devices: None Physical Exam Physical Exam: In general this is a well-developed well-nourished white male in no acute distress. HEENT exam is negative. Neck is supple with full carotid upstrokes. There are no carotid bruits. Jugular venous pressure is flat at 90. There is no thyromegaly. Cardiovascular exam reveals a regular rhythm with a normal S1 and S2. No S3, S4, or murmurs are noted. Lungs are clear without rales, rhonchi, or wheezes. Abdomen is soft and nontender without bruits. Extremities reveal intact radial artery and posterior tibial pulses bilaterally. There is no peripheral edema. Results & Data ([facility]) Vital Signs (Past 12 Hours) Vital Signs Temp Pulse Pulse Resp BP Pulse Ox 01/27/22 07:45 36.3 C L 84 18 136/82 16 L 01/27/22 07:17 62 01/27/22 04:12 36.5 C 60 18 113/65 97 01/26/22 23:56 81 Laboratory Results CBC notes hemoglobin 15.0, hematocrit 43.7, white count 9.3, a platelet count of [id number]. Electrolytes note a sodium of 139, potassium 4.2, chloride 103, bicarb 27, BUN 19, creatinine 1.4, glucose of 88. Initial high sensitivity troponin was 15.1 with follow-up values of 25.2, 28.6, an 24.0. Diagnostic Findings Initial EKG noted an accelerated junctional rhythm with poor R-wave progression across the anterior precordium. Follow-up tracing noted sinus bradycardia with a profound first-degree AV block. Echocardiogram notes normal systolic function with ejection fraction 55-60%. There was mild LVH along with mild mitral regurgitation and mild mitral stenosis. is an old inferior PA pattern along with poor R-wave progression across the anterior precordium. Chest x-ray shows no acute disease. PG Care Time/CCT Total # of Minutes Spent Total Time Spent with Patient: Total time spent is greater than 50% in coordination of care (as documented) at patient's floor/unit and/or counseling patient: Coding Level of Care Code INT OBSERVATION CARE 70M LVL 3 Diagnoses Chest pain R07.9 Chest pain type: unspecified Hypertension I10 Hypercholesterolemia E78.00 Mitral insufficiency I34.0 (1) Chest pain Chest pain type: unspecified Qualified Code(s): R07.9 - Chest pain, unspecified
--- NOTE | 2022-01-27 12:27 | Discharge Summary ---
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 Patient is active and independent. He is able to walk 18 holes of golf without exertional symptoms. Patient was golfing today - started playing at 11:00 and immediately felt short of breath. He walked some but also rode in a friend's golf cart which is unusual for him. When he got to the 8th hole he began feeling dizzy and at the 9th hole he felt dizzy as well as substernal chest discomfort. Chest discomfort felt like pressure, non-radiating, no diaphoresis or nausea. Relieved with rest. He has not had a recurrence of the discomfort today. Presently chest pain free. He also reports some mild cramping in his left hamstring that he noticed today as well. Patient was wearing his FitBit during the day. His heart rate was >100 for most of the time golfing, maximum of 116 bpm. For comparison, he golfed last weekend with maximum heart rate of 122 and did not experience any symptoms. No history of DVT. No known history of CAD, CHF or arrhythmia. No prior cardiac catheterizations. Patient had an exercise stress echo performed on 12/25/2011 which was normal with no evidence of inducible ischemia. He was seen by Cardiology in December 2011 after presenting with left sided numbness. He had minimally elevated troponin at that time. Principal Diagnosis Chest pain First-degree heart block, junctional rhythm Discharge Exam General: A&Ox3. NAD. Cooperative. HEENT: Atraumatic, normocephalic. Hearing grossly intact. No JVD Pulm: CTAB A&P. -wheezes, -rales, -rhonchi. Symmetrical chest rise. No increase in work of breathing. No respiratory distress. Cardiac: RRR, -mrg. Radial pulses intact and symmetrical. Abdominal: Nontender, nondistended, soft. BS present. Extremities: Moving all extremities equally, independently ambulatory, no pedal edema Discharge Data Allergies Allergy/AdvReac Type Severity Reaction Status Date / Time NSAIDS (Non-Steroidal Allergy Unknown STROKE Verified 01/05/22 14:01 Anti-Inflamma AFTER MED?UNSURE IF CAUSED codeine AdvReac Mild ABDOMINAL Verified 01/05/22 14:01 PAIN Consultations 01/26/22 19:18 ED Decision to Admit Stat 01/26/22 22:07 Consult Cardiology Routine Ordered Studies 01/26/22 22:07 US venous doppler LE Urgent Hospital Course (1) Chest pressure: 76yo male with history of HTN, HLP presenting with substernal chest pressure that occurred today (01/26/22) while golfing. Pain has now resolved. No additional complaints. Initial EKG with junctional rhythm, repeat with SR with 1st degree AV block. HS-tropnonin 15.1 --> 25.2 at 2 hours. Risk factors include age, gender, history of HTN/HLP Hospital course: Was observed overnight, troponin high-sensitivity peaked at 28 and down trended, slight troponin leak consistent with demand. Patient was noted to be in a transient junctional rhythm and then first-degree heart block with MN 400 MS. Patient underwent a stress echocardiogram with cardiology which was normal. Discussed case with cardiology, recommended patient be discharged. Did not recommend outpatient monitoring or additional work-up at this time. May follow-up with outpatient PCP, and can consider monitoring if recurrent symptoms. Chest Pain -Observation to medical with telemetry - EKG on admit in junction rhythm, repeat with 1* block MN 400ms -Continue to trend HS-troponin peaked at 28 now downtrending -Stress echocardiogram normal -EKG as needed with chest pain -Nitro SL as needed for chest pain -Cardiology consultation appreciated -Continue daily aspirin -Continue Atorvastatin. Last LDL 53. No increase in dosing recommended at this time. - No hx DM, tobacco use, CO, CAD - Lyme negative (2) Hypertension: Blood pressure adequately controlled on medication -Continue HCTZ 25mg po qAM -Continue Metoprolol 25mg po BID -Continue to monitor (3) Hypercholesterolemia: -Chronic. -Well controlled on Atorvastatin. -Last lipid panel 12/08/21 - Total Cholesterol = 116, LDL=54, HDL=46, TG=82 -Continue Atorvastatin 20mg po qHS (4) Transient ischemic attack (TIA): -Patient with remote history of prior CVA, TIA in 2011. - No neurological deficits. -Continue ASA, Atorvastatin (5) BPH (benign prostatic hyperplasia): -Presently without symptoms -Continue Tamsulosin 0.4mg po daily (6) First degree atrioventricular block: - As previously noted - Lyme negative F/E/N - Heplock. Monitor electrolytes and replete as needed. Heart Healthy diet. NPO pending cardiac eval Ppx - low risk for DVT Code - Full per discussion with patient Dispo - Observation to medical with telemetry Total Time Total Time Spent Total Time Spent (In Minutes): Time spend day of discharge 45 minutes including direct patient care, documentation, review of labs and images, and coordination of care. Discharge Plan Discharge Items Patient Disposition: Home - Self-Care Reason For Visit: CHEST PRESSURE Discharge Diagnosis: Chest pressure First-degree heart block Activity: Resume your previous activity Non-emergency contact: Primary Care Provider Call non-emergency contact if: you have any medication questions, your symptoms worsen, your pain is not controlled, your pain is worsening and you have a fever Follow-up/Referrals: Rod Bowling MD [Primary Care Provider] - Diet: Regular Addtl Attending Provider Instructions: You are seen in the hospital for chest pain. Youe had a very mild elevation in heart enzymes. On admission you were noted to have a first-degree heart block, and electrical abnormality which for many patients is asymptomatic and undetectable, and were transiently in a junctional rhythm. Your case was reviewed with cardiology. You underwent a stress echocardiogram which was normal. Additional workup and monitoring was not recommended at this time. If you experience recurrent symptoms you can discuss additional followup or potentially an outpatient heart monitor with your PCP. You have not been prescribed any new medications at this time. If you develop any new or worsening symptoms including fever, chills, sweats, chest pain, chest pressure, difficulty breathing, uncontrolled nausea/vomiting, rash, wheezing, passing out or nearly passing out, bleeding, black/bloody bowel movements, or other new or concerning symptoms please call your primary care physician, or call 911 for re-evaluation in the emergency department if you are very concerned. Pending Studies at Discharge: No Stand-Alone Forms: [employer], Smoking Cessation Medications and DC Order Prescriptions: Continued metoprolol tartrate 25 mg tablet 25 mg PO BID Qty: 180 RF: 3 atorvastatin 20 mg tablet 20 mg PO HS Qty: 90 RF: 3 aspirin 325 mg tablet 325 mg PO QAM RF: 0 coenzyme Q10 100 mg capsule 100 mg PO QAM RF: 0 multivitamin [Daily Multi-Vitamin] tablet 1 tab PO QAM RF: 0 ascorbic acid (vitamin C) 1,000 mg tablet 1 gm PO QAM RF: 0 calcium carbonate-vitamin D3 [Calcium 600 with Vitamin D3] 600 mg(1,500mg) - 500 unit capsule 1 cap PO QAM RF: 0 omega-3 fatty acids-fish oil [Fish Oil] 360-1,200 mg capsule 1 cap PO DAILY RF: 0 super beta prostate 1 tab PO QPM RF: 0 inulin [Fiber Gummies] 1 tab PO DAILY RF: 0 tamsulosin 0.4 mg capsule 0.4 mg PO QPM Qty: 90 RF: 3 potassium chloride 10 mEq tablet,ER particles/crystals 10 meq PO QAM Qty: 90 RF: 3 magnesium 250 mg Tablet 250 mg PO DAILY RF: 0 loratadine [Claritin] 10 mg Tablet 10 mg PO DAILY RF: 0 Systane (PF) 0.4-0.3 % Dropperette 1 drp OPHTHALMIC (EYE) BID RF: 0 hydrochlorothiazide 25 mg tablet 25 mg PO QAM RF: 0 Discharge Orders: Discharge Order (Routine); Ordered 01/27/22 Ordered By: Cale Laurent Admission Data Admit Date/Time: 01/26/22 20:30 Attending Provider: Cale Laurent Admit Provider: Gloria Pascual Primary Care Provider: Rod Bowling Other Providers: Gloria Pascual ; Rod Issa Coding Level of Care Code 45180 OBS Care - Discharge Diagnoses Chest pressure R07.89 Hypertension I10 Hypercholesterolemia E78.00 Transient ischemic attack (TIA) G45.9 BPH (benign prostatic hyperplasia) N40.0 First degree atrioventricular block I44.0
--- NOTE | 2022-01-28 09:22 | XCELERA ---
[id number]
--- NOTE | 2022-01-28 15:00 | Electrocardiogram Report ---
Test Reason : Blood Pressure : / mmHG Vent. Rate : 104 BPM Atrial Rate : 104 BPM P-R Int : 000 ms QRS Dur : 068 ms QT Int : 352 ms P-R-T Axes : 000 011 060 degrees QTc Int : 462 ms Probable sinus tachycardia with first degree AV block Anterior infarct , age undetermined Abnormal ECG When compared with ECG of 28-DEC-2011 11:19, 1st degree AV block is now present Vent. rate has increased BY 39 BPM Anterior infarct is now Present Confirmed by Freddy Babin ([id number]) on 01/28/2022 2:59:58 PM Referred By: Confirmed By:Freddy Babin
--- NOTE | 2022-01-28 15:12 | Electrocardiogram Report ---
Test Reason : Blood Pressure : / mmHG Vent. Rate : 073 BPM Atrial Rate : 073 BPM P-R Int : 400 ms QRS Dur : 066 ms QT Int : 400 ms P-R-T Axes : 031 -08 047 degrees QTc Int : 440 ms Sinus rhythm with 1st degree A-V block Inferior infarct , age undetermined Anterior infarct (cited on or before 26-JAN-2022) Abnormal ECG When compared with ECG of 26-JAN-2022 14:48, (unconfirmed) HR has decreased Confirmed by Freddy Babin ([id number]) on 01/28/2022 3:12:06 PM Referred By: REFERRED SELF Confirmed By:Freddy Babin
== END 2022-01-27 13:18 | disposition home or self-care (01) ==
LOC: 2N 14:27 → ED 14:27 → SUATTDRO 20:30 → 2N 21:37